=== PATIENT | male | born 1955 | race Two or more races ===

== ENCOUNTER 2019-05-25 13:38 | Emergency (ER) | payer MEDICARE, OTHER ==
[~2019-05-25] VITALS: Ht 175.3 cm; Wt 117.9 kg
[2019-05-25 14:04] VITALS: BP 165/91
[2019-05-25] MEDS ORDERED: KETOROLAC TROMETH 60MG/2ML VIAL IM ONE (15:00)
== END 2019-05-25 17:01 | disposition home or self-care (01) ==
LOC: ER 13:38
DX: S83.92XA Sprain of unspecified site of left knee, initial encounter (principal); S20.312A Abrasion of left front wall of thorax, initial encounter; V87.8XXA Person injured in other specified noncollision transport accidents involving motor vehicle (traffic), initial encounter; Y93.55 Activity, bike riding; Y92.89 Other specified places as the place of occurrence of the external cause; Y99.8 Other external cause status
CPT/HCPCS: 29505; 71101; 73562; 96372; 99284; J1885